=== PATIENT | female | born 1950 | race Caucasian/White ===

== ENCOUNTER 2016-05-05 10:19 | Emergency (ER) | payer OTHER ==
[2016-05-05] MEDS ORDERED: TRIAMTERENE (10:55)
[2016-05-05] MEDS ORDERED: VIBRAMYCIN100 M1 PO (12:33)
== END 2016-05-05 12:41 ==
LOC: EDMED 10:19
DX: S71.151A Open bite, right thigh, initial encounter (principal); W55.01XA Bitten by cat, initial encounter; Y92.019 Unspecified place in single-family (private) house as the place of occurrence of the external cause